=== PATIENT | female | born 1985 | race Hispanic/Latino ===

== ENCOUNTER → 2024-06-20 07:41 | Outpatient (REF) | payer BC, SELFPAY ==
[2024-06-20 08:17] LABS: Urine Albumin Negative (Neg - Trace); Urine Bilirubin Negative (Negative); Urine Character Slightly Cloudy (Clear); Urine Color Yellow; Urine Glucose Negative (Negative); Urine Ketone Negative (Negative); Urine Leukocyte Trace (Negative); Urine Nitrite Negative (Negative); Urine Occult Blood 2+ (Negative); Urine Specific Gravity 1.015 (<1.030); Urine Urobilinogen Negative (Neg - 1+); Urine pH 6.5 (5.0-9.0)
[2024-06-20 08:19] LABS: % Basophils 0.4 % (0-2); % Eosinophils 5.3 % (0-6); % Immature Granulocytes 0.3 % (0-0.5); % Lymphocytes 21.2 % (20.5-51.1); % Monocytes 7.2 % (1.7-9.3); % Neutrophils 65.6 % (42.2-75.2); Absolute Eosinophils 0.4 10^3/uL (0-0.7); Absolute Lymphocytes 1.5 10^3/uL (1.2-3.4); Absolute Monocytes 0.5 10^3/uL (0.1-0.6); Absolute Neutrophils 4.6 10^3/uL (1.4-6.5); Hematocrit 35.4 % (37.0-47.0); Hemoglobin 11.8 g/dL (12.0-16.0); Mean Corp Hgb Conc. 33.3 g/dL (33.0-37.0); Mean Corpuscular Hgb 28.2 pg (27.0-31.0); Mean Corpuscular Volume 84.7 fL (81.0-99.0); Mean Platelet Volume 10.8 fL (7.4-10.4); Nucleated Red Blood Cells % 0 %; Platelet Count 218 10^3/uL (130-400); Red Blood Cell Count 4.18 10^6/uL (4.20-5.40)
[2024-06-20 08:27] LABS: Urine Squamous Cell >30 /LPF (Few)
[2024-06-20 08:29] LABS: Urine Bacteria Few (Negative); Urine White Cell 0-2 /HPF (0-5)
[2024-06-20 08:51] LABS: ALT (SGPT) 12 U/L (0-35); AST (SGOT) 22 U/L (14-36); Albumin 4.6 g/dl (3.5-5.0); Alkaline Phosphatase 62 U/L (38-126); Blood Urea Nitrogen 13 mg/dl (7-17); Calcium 9.6 mg/dl (8.4-10.2); Carbon Dioxide 24 mmol/L (22-30); Chloride 102 mmol/L (98-107); Glucose 91 mg/dl (70-99); HDL Cholesterol 63 mg/dl; LDL Cholesterol, Calculated 97 mg/dl; Potassium 4.1 mmol/L (3.5-5.1); Sodium 142 mmol/L (135-145); Total Bilirubin 0.3 mg/dl (0.2-1.3); Total Cholesterol 203 mg/dl (50-199); Total Protein 7.2 g/dl (6.3-8.2); Triglyceride 219 mg/dl (10-149); Very Low Density Lipoprotein 43 mg/dl (0-30); eGFR > 60.00
[2024-06-20 09:04] LABS: Free T4 0.87 ng/dl (0.78-2.19)
[2024-06-20 09:18] LABS: Glycohemoglobin (HgbA1c) 5.2 % (4.0-5.6)
[2024-06-20 09:23] LABS: Ferritin 9.7 ng/ml (6.24-137)
[2024-06-20 09:55] LABS: Folate 14.2 ng/ml (2.76-20); Vitamin B12 550 pg/ml (239-931)
== END ==
LOC: REG 07:41
PROVIDERS: ATTENDING PHYSICIAN Nurse Practitioner Family; FAMILY PHYSICIAN Family Medicine
DX: E78.2 Mixed hyperlipidemia (principal); Z00.00 Encounter for general adult medical examination without abnormal findings; N95.1 Menopausal and female climacteric states
CPT/HCPCS: 36415; 80053; 80061; 81003; 81015; 82607; 82728; 82746; 83036; 84439; 84443; 85025

== ENCOUNTER → 2024-06-28 13:47 | Outpatient (REF) | payer BC, SELFPAY | LOC: WDC 13:47 | PROVIDERS: ATTENDING PHYSICIAN Nurse Practitioner Family | DX: Z12.31 Encounter for screening mammogram for malignant neoplasm of breast (principal) | CPT/HCPCS: 77063; 77067 ==

== ENCOUNTER 2024-08-23 17:29 | Emergency (ER) | payer BC, SELFPAY ==
[2024-08-23 17:36] VITALS: BP 96/63
[2024-08-23 18:36] VITALS: BMI 20.6
[2024-08-23 18:39] LABS: % Basophils 0.3 % (0-2); % Eosinophils 4.3 % (0-6); % Immature Granulocytes 0.3 % (0-0.5); % Lymphocytes 27.2 % (20.5-51.1); % Monocytes 4.5 % (1.7-9.3); % Neutrophils 63.4 % (42.2-75.2); Absolute Eosinophils 0.4 10^3/uL (0-0.7); Absolute Lymphocytes 2.5 10^3/uL (1.2-3.4); Absolute Monocytes 0.4 10^3/uL (0.1-0.6); Absolute Neutrophils 5.9 10^3/uL (1.4-6.5); Hematocrit 34.5 % (37.0-47.0); Hemoglobin 11.5 g/dL (12.0-16.0); Mean Corp Hgb Conc. 33.3 g/dL (33.0-37.0); Mean Corpuscular Hgb 27.3 pg (27.0-31.0); Mean Corpuscular Volume 81.8 fL (81.0-99.0); Mean Platelet Volume 10.2 fL (7.4-10.4); Nucleated Red Blood Cells % 0 %; Platelet Count 271 10^3/uL (130-400); Red Blood Cell Count 4.22 10^6/uL (4.20-5.40); Red Cell Dist. Width 12.6 % (11.5-14.5); White Blood Cell Count 9.3 10^3/uL (4.8-10.8)
[2024-08-23 18:54] LABS: HCG, Serum Qualitative Screen Negative
[2024-08-23 18:58] LABS: ALT (SGPT) 17 U/L (0-35); AST (SGOT) 21 U/L (14-36); Albumin 4.4 g/dl (3.5-5.0); Alkaline Phosphatase 49 U/L (38-126); Blood Urea Nitrogen 8 mg/dl (7-17); Calcium 9.2 mg/dl (8.4-10.2); Carbon Dioxide 24 mmol/L (22-30); Chloride 103 mmol/L (98-107); Estimated Creatinine Clearance 117 ml/min; Glucose 100 mg/dl (70-99); Sodium 140 mmol/L (135-145); Total Bilirubin 0.1 mg/dl (0.2-1.3); eGFR > 60.00
[2024-08-23 18:59] LABS: Lipase 75 U/L (23-300)
[2024-08-23 19:25] VITALS: BP 108/60
--- NOTE | 2024-08-23 20:12 | ED.GENMED ---
History of Present Illness
General
Chief Complaint: Abdominal Pain
Source: patient
Exam Limitations: none
Time Seen by Provider: 08/23/24 18:12
Nursing documentation reviewed up to this point in time: agreed with
History of Present Illness
History of Present Illness:
38-year-old female with a past medical history of asthma who presents to the emergency room for evaluation of abdominal pain. Patient reports onset of symptoms last night�she says she drank a glass of water and started having pain in the right
upper abdomen. She says that symptoms have been consistent since then. She reports a sharp pain right upper abdomen radiates to his right flank. She reports associated nausea but no vomiting. Denies any diarrhea or constipation. Denies any UTI
symptoms. She has had some vaginal spotting is currently on her menstrual period, no heavier than usual. She has not had any fevers or chills. She denies similar symptoms in the past. She does have prior surgical history of appendectomy.
Review of Systems
Review of Systems
All Other Systems: ROS reviewed and negative except as documented in HPI and ROS
Constitutional: Denies fever or chills
Respiratory: Denies trouble breathing
Cardiac: Denies chest pain
ABD/GI: Reports abdominal pain and nausea; Denies vomiting, diarrhea or constipated
: Reports bleeding (spotting); Denies dysuria, frequency or flank pain
Musculoskeletal: Denies neck pain or back pain
Neurological: Denies dizzy or headache
Phy Exam
Physical Exam
Physical Exam:
General: Awake, alert; no acute distress
Head: Normocephalic, atraumatic
Eyes: Conjunctiva normal, sclera anicteric
Throat: Airway intact, handling secretions
Neck: Trachea midline, supple without meningismus
Lungs: Clear to auscultation bilaterally, no wheezing, rales, rhonchi
Heart: Regular rate and rhythm, no murmurs, gallops, or rubs
Abd: Soft, non distended, mildly tender right upper quadrant
Back: No CVA tenderness
Neuro: No gross deficit
Extremities: Warm and well-perfused
Scores
Heart Failure Risk
Heart Failure Risk Score: Not Applicable
Heart Score for Chest Pain Patients
STEMI patient?: Not applicable
Withdrawal Assessment of Alcohol
Withdrawal Assessment Completed?: Not applicable
Course
Orders/Labs/Results
Orders:
Orders
08/23/24 18:15
Test Result ONCE
US Abdomen Complete/Upper Urgent
Comment:
Reason For Exam: RUQ pain
08/23/24 18:33
Complete Blood Count/With Diff Urgent
Comprehensive Metabolic Panel Urgent
HCG, Serum Qualitative Screen Urgent
Lipase Urgent
08/23/24 19:46
0.9% Sodium Chloride 500 ml [Nss] 500 ml IV BOLUS
Ketorolac [Toradol] 15 mg IV NOW STA
08/23/24 19:47
CT Abd/pelvis W Iv Cont Urgent
Comment:
Reason For Exam: right flank pain
08/23/24 20:55
Urinalysis Reflex To Culture Urgent
Date Specimen was Collected: 08/23/24
Time Specimen was Collected: 19:26
08/23/24 21:30
Pantoprazole [Protonix IV] 40 mg IV NOW STA
Abnormal Lab Results
08/23/24
18:33
Hgb 11.5 L g/dL
(12.0-16.0)
Hct 34.5 L %
(37.0-47.0)
Creatinine 0.5 L mg/dL
(0.6-1.0)
Glucose 100 H mg/dl
(70-99)
Total Bilirubin 0.1 L mg/dl
(0.2-1.3)
08/23/24 18:33
08/23/24 18:33
Vital Signs
Initial and Last Documented VS:
Initial Vital Signs
Temp Pulse Resp BP Pulse Ox
37.1 C 69 16 96/63 99
08/23/24 17:36 08/23/24 17:36 08/23/24 17:36 08/23/24 17:36 08/23/24 17:36
Last Documented Vital Signs
Temp Pulse Resp BP Pulse Ox
37.0 C 56 16 108/60 99
08/23/24 19:25 08/23/24 19:25 08/23/24 19:25 08/23/24 19:25 08/23/24 19:25
MDM/Problems Addressed
Differential Diagnosis Includes:
Cholecystitis, cholelithiasis, pancreatitis, gastritis, enteritis, nephrolithiasis, pyelonephritis
MDM/Problems Addressed:
38-year-old female presents for evaluation of right upper abdominal pain started after drinking water last night associate with nausea no vomiting. Vitals normal. Exam as above. Recent IV check labs including CBC and CMP, lipase. Check hCG.
Check urinalysis. Sent for upper abdominal trauma start. Provide fluids and pain medication. Reassess after the above.
Initial labs reviewed: CBC unremarkable, CMP no clinically significant abnormalities. hCG negative. Lipase normal. Urinalysis pending. Upper abdominal ultrasound negative for any acute pathology. With continued pain and tenderness sent for CT
abdomen pelvis.
CT abdomen pelvis negative for any acute pathology. Patient remains stable with normal vital signs. Possible symptoms are related to mild enteritis or gastritis or PUD. Low suspicion for emergent pathology at this point. Pain is well-controlled.
No clear indication for admission at this point. Will start on PPI, bland diet, discharge with GI referral. Patient is very comfortable with this plan. We spoke about return precautions all questions answered.
*Radiology
Radiology exam reviewed: radiology read reviewed
*Pulse Oximetry
Patient hypoxic: no
*Critical Care Note
Total Time (30-74mins, 75-104mins- exclusive of procedures): Not Applicable
Data Reviewed
Source: patient and spouse
ED Attending Note
-
Portions of this chart may have been created with voice recognition software.� Occasional wrong word or��sound alike� substitutions may have occurred due to the inherent limitations of voice recognition software.
Discharge Plan
Departure
Patient Disposition: Home (Routine Discharge)
Date of Disposition: 08/23/24
Time of Disposition: 21:36
Patient with high blood pressure during this ER visit?: No
Discharge Problem:
Abdominal pain
Instructions: Abdominal Pain
Prescriptions:
New
pantoprazole 40 mg tablet,delayed release (DR/EC)
40 mg PO DAILY Qty: 30 0RF
No Action
cetirizine [Zyrtec] 10 mg Tablet
10 mg PO DAILY
ibuprofen 200 mg Tablet
200 - 400 mg PO PRN PRN (Reason: pain)
Probiotic Acidophilus 1.5 mg (250 million cell) Capsule
10 mg PO DAILY
sertraline 100 mg Tablet
100 mg PO DAILY
sertraline 50 mg Tablet
50 mg PO HS
pyridoxine (vitamin B6) [Vitamin B-6] 500 mg Tablet
500 mg PO DAILY
Referrals:
Darío Mcneill DO [Family Provider] -
Jeffry Cespedes MD [Active] - Call in 1-3 days for appt (GI physician)
Activity Restrictions/Additional Instructions:
Thank you for visiting the Emergency Department at [facility].
1. Please schedule a follow up appointment as directed. Call first thing tomorrow morning to make an appointment.
2. If indicated, please take your medications as instructed and indicated on discharge paperwork.
3. If any of your symptoms do not improve, or persist, or become more severe within 6-12 hours, please return to the emergency department for further care.
4. Please return to the emergency department if you develop a headache, neck pain/stiffness, fever greater than 100.4F, chest pain, shortness of breath, persistent nausea, vomiting, slurred speech, difficulty walking, numbness/tingling, weakness,
signs of infection or any other symptoms that are worrisome to you.
Please call [phone] if you have any questions.
Interventions
Interventions:
*Risk Screen - Suicide Last Done: 08/23/24 17:37
*General Assessment Last Done: 08/23/24 18:40
*Neglect/Abuse Screening Last Done: 08/23/24 17:37
ED- Fall Risk Assessment Last Done: 08/23/24 19:02
LF-Mjmvrw-Vtcnzjkxcd Assessment Last Done: 08/23/24 18:40
Discharge Date and Time
Print Language: ICELANDIC
[2024-08-23] MEDS: TORADOL 15 MG IV (20:30)
[2024-08-23] MEDS: NSS 500 IV (20:31)
[2024-08-23] MEDS: PROTONIX IV 40 MG IV (21:56)
== END 2024-08-23 22:14 | disposition home or self-care (01) ==
LOC: EMR 17:29
PROVIDERS: EMERGENCY PHYSICIAN Emergency Medicine; FAMILY PHYSICIAN Family Medicine
DX: R10.9 Unspecified abdominal pain (principal); J45.909 Unspecified asthma, uncomplicated; Z90.49 Acquired absence of other specified parts of digestive tract
CPT/HCPCS: 99284; 96374; 96375; 96361; 74177; 76700; 80053; 83690; 84703; 85025; Q9967

== ENCOUNTER → 2024-09-03 11:13 | Outpatient (REF) | payer BC, SELFPAY ==
[2024-09-03 11:45] LABS: Urine Albumin Negative (Neg - Trace); Urine Bilirubin Negative (Negative); Urine Character Clear (Clear); Urine Color Straw; Urine Glucose Negative (Negative); Urine Ketone Negative (Negative); Urine Leukocyte 1+ (Negative); Urine Nitrite Negative (Negative); Urine Occult Blood Trace (Negative); Urine Specific Gravity 1.005 (<1.030); Urine Urobilinogen Negative (Neg - 1+)
[2024-09-03 12:52] LABS: Urine Squamous Cell >30 /LPF (Few); Urine Urothelial Cell 0-2 /LPF (FEW)
[2024-09-03 12:54] LABS: Urine Bacteria Few (Negative)
[2024-09-03 12:59] LABS: Ferritin 10.8 ng/ml (6.24-137)
[2024-09-03 13:14] LABS: Vitamin B12 792 pg/ml (239-931)
== END ==
LOC: REG 11:13
PROVIDERS: ATTENDING PHYSICIAN Nurse Practitioner Family
DX: D50.0 Iron deficiency anemia secondary to blood loss (chronic) (principal); R31.0 Gross hematuria
CPT/HCPCS: 36415; 81003; 81015; 82607; 82728; 87077; 87086; 87147

== ENCOUNTER → 2024-09-04 12:14 | Outpatient (REF) | payer BC, SELFPAY | LOC: REG 12:14 | PROVIDERS: ATTENDING PHYSICIAN Nurse Practitioner Family; FAMILY PHYSICIAN Family Medicine | DX: D50.9 Iron deficiency anemia, unspecified (principal); R31.0 Gross hematuria | CPT/HCPCS: 82272 ==

== ENCOUNTER → 2024-09-19 11:29 | Outpatient (REF) | payer BC, SELFPAY | LOC: HWRAD 11:29 | PROVIDERS: ATTENDING PHYSICIAN Nurse Practitioner Family; FAMILY PHYSICIAN Family Medicine | DX: E04.9 Nontoxic goiter, unspecified (principal) | CPT/HCPCS: 76536 ==

== ENCOUNTER 2025-03-17 09:30 | Emergency (ER) | payer BC, SELFPAY ==
[2025-03-17 09:43] VITALS: BP 118/73
--- NOTE | 2025-03-17 10:07 | ED.GENMED ---
History of Present Illness
General
Chief Complaint: Throat Problem
Source: patient and records
Exam Limitations: none
Time Seen by Provider: 03/17/25 09:54
History of Present Illness
History of Present Illness:
39yoF with a history of a thyroid nodule presenting with her for evaluation of atraumatic neck pain. Patient started to experience pain in her anterior neck last night. Pain is radiating up towards her jaw and is worse with talking. She
was diagnosed with a thyroid nodule about a year ago. Ultrasound in September 2024 shows a 11 x 7 x 11mm nodule on the R isthmus. She followed up with ENT and biopsy was not recommended. She was told to have a repeat ultrasound in 6 months which
she does not have scheduled yet. She feels that her nodule has gradually gotten bigger over the past several weeks. She denies any shortness of breath, dysphagia, fevers, URI symptoms.
Phy Exam
General Physical Exam
General Presentation: well appearing and no apparent distress
General Skin: warm and dry
General Habitus: normal
General Mental: alert
ENT Exam
ENT Exam: pharynx normal, neck supple, normocephalic and other (+Tenderness to thyroid gland. Small palpable nodule on R side of thyroid. No skin changes or significant swelling. Airway patent and phonation is normal. Posterior oropharynx appears
normal.)
Pulmonary Exam
Pulmonary Exam: no respiratory distress
Neurological Exam
Neurological Exam: alert
Valeriy Coma Scale
Eye Opening: Spontaneous
Verbal Response: Oriented
Motor Response: Obeys Commands
GCS Total Score: 15
Skin Exam
Skin Exam: normal color and warm/dry
Psychiatric Exam
Psychiatric Exam: normal mood/affect
Course
Orders/Labs/Results
Orders:
Orders
03/17/25 10:05
Thyroid US [US Thyroid/Neck/Head] Urgent
Comment:
Reason For Exam: Thyroid tenderness, R sided swelling
03/17/25 10:16
Complete Blood Count/With Diff Urgent
Comprehensive Metabolic Panel Urgent
TSH Reflex To Free T4 Urgent
03/17/25 12:21
Ketorolac [Toradol] 15 mg IV NOW STA
Abnormal Lab Results
03/17/25
10:16
RBC 3.89 L 10^6/uL
(4.20-5.40)
Hgb 10.7 L g/dL
(12.0-16.0)
Hct 32.6 L %
(37.0-47.0)
MCHC 32.8 L g/dL
(33.0-37.0)
Lymphocytes % 20.3 L %
(20.5-51.1)
Chloride 108 H mmol/L
(98-107)
03/17/25 10:16
03/17/25 10:16
Vital Signs
Initial and Last Documented VS:
Initial Vital Signs
Temp Pulse BP Pulse Ox
98.4 F 69 118/73 100
03/17/25 09:43 03/17/25 09:43 03/17/25 09:43 03/17/25 09:43
Last Documented Vital Signs
Temp Pulse Resp BP Pulse Ox
98.5 F 72 20 136/71 99
03/17/25 10:25 03/17/25 10:25 03/17/25 10:25 03/17/25 10:25 03/17/25 11:00
MDM/Problems Addressed
Differential Diagnosis Includes:
39yoF here with anterior neck pain since last night. Hx of thyroid nodule and feels it is getting bigger. No SOB. VSS. She is well appearing in no distress. There is thyroid tenderness on exam with a small palpable nodule. No significant swelling
noted or clinical evidence of airway compromise. Differential diagnosis includes but is not limited: thyroid nodule, thyroiditis, less likely infectious
Initial ED plan: Check CBC, CMP, TSH, and thyroid ultrasound.
*Critical Care Note
Total Time (30-74mins, 75-104mins- exclusive of procedures): Not Applicable
Update Note
Update Note:
Labs unremarkable including normal white count and TSH. Thyroid ultrasound shows small nodule measuring 1.3 x 0.9 x 1.0cm. Biopsy not recommended per radiology guidelines. No other abnormalities noted on ultrasound. Patient stable for discharge.
Supportive care discussed and advised f/u with ENT. ED return precautions reviewed. Patient discharged in stable condition.
ED Attending Note
-
Portions of this chart may have been created with voice recognition software.� Occasional wrong word or��sound alike� substitutions may have occurred due to the inherent limitations of voice recognition software.
Discharge Plan
Departure
Patient Disposition: Home (Routine Discharge)
Date of Disposition: 03/17/25
Time of Disposition: 12:20
Patient with high blood pressure during this ER visit?: No
Discharge Problem:
Anterior neck pain, Thyroid nodule
Instructions: Neck pain - ED discharge instructions
Prescriptions:
No Action
ibuprofen 200 mg Tablet
200 - 400 mg PO PRN PRN (Reason: pain)
Probiotic Acidophilus 1.5 mg (250 million cell) Capsule
10 mg PO DAILY
sertraline 100 mg Tablet
100 mg PO DAILY
Referrals:
Darío Mcneill DO [Family Provider, Family Practice]
Daniel Pena MD [Active, Otology]
Activity Restrictions/Additional Instructions:
Take Tylenol and ibuprofen as needed for pain.
Please call ENT today for follow-up. Return to the ER with any worsening symptoms including trouble breathing, fevers, or inability to swallow.
Interventions
Interventions:
*Risk Screen - Suicide Last Done: 03/17/25 10:25
*General Assessment Last Done: 03/17/25 10:25
*Neglect/Abuse Screening Last Done: 03/17/25 10:25
*ED- Fall Risk Assessment Last Done: 03/17/25 10:25
*ED COVID-19 Vaccine History Last Done: 03/17/25 10:25
*Nursing Disposition Last Done: 03/17/25 12:40
ED-EENT Assessment Last Done: 03/17/25 10:25
ED- Pulmonary Assessment Last Done: 03/17/25 10:25
Discharge Date and Time
Discharge Date/Time: 03/17/25 12:41
Print Language: [place]LAND[place]
[2025-03-17 10:17] VITALS: BMI 24.2
[2025-03-17 10:25] VITALS: BP 136/71
[2025-03-17 10:25] LABS: % Basophils 0.3 % (0-2); % Eosinophils 2.3 % (0-6); % Immature Granulocytes 0.2 % (0-0.5); % Lymphocytes 20.3 % (20.5-51.1); % Monocytes 5.2 % (1.7-9.3); % Neutrophils 71.7 % (42.2-75.2); Absolute Eosinophils 0.2 10^3/uL (0-0.7); Absolute Lymphocytes 1.8 10^3/uL (1.2-3.4); Absolute Monocytes 0.5 10^3/uL (0.1-0.6); Absolute Neutrophils 6.2 10^3/uL (1.4-6.5); Hematocrit 32.6 % (37.0-47.0); Hemoglobin 10.7 g/dL (12.0-16.0); Mean Corp Hgb Conc. 32.8 g/dL (33.0-37.0); Mean Corpuscular Hgb 27.5 pg (27.0-31.0); Mean Corpuscular Volume 83.8 fL (81.0-99.0); Mean Platelet Volume 10.4 fL (7.4-10.4); Nucleated Red Blood Cells % 0 %; Platelet Count 263 10^3/uL (130-400); Red Blood Cell Count 3.89 10^6/uL (4.20-5.40); Red Cell Dist. Width 12.8 % (11.5-14.5); White Blood Cell Count 8.6 10^3/uL (4.8-10.8)
[2025-03-17 10:36] LABS: ALT (SGPT) 14 U/L (0-35); AST (SGOT) 20 U/L (14-36); Albumin 4.3 g/dl (3.5-5.0); Alkaline Phosphatase 53 U/L (38-126); Blood Urea Nitrogen 12 mg/dl (7-17); Carbon Dioxide 25 mmol/L (22-30); Chloride 108 mmol/L (98-107); Estimated Creatinine Clearance 116 ml/min; Glucose 98 mg/dl (70-99); Potassium 4.2 mmol/L (3.5-5.1); Sodium 139 mmol/L (135-145); Total Bilirubin 0.4 mg/dl (0.2-1.3); Total Protein 6.9 g/dl (6.3-8.2); eGFR > 60.00
[2025-03-17 11:23] LABS: TSH Reflex To Free T4 1.81 uIU/ml (0.47-4.68)
== END 2025-03-17 12:41 | disposition home or self-care (01) ==
LOC: EMR 09:30
PROVIDERS: Physician Assistant; EMERGENCY PHYSICIAN Emergency Medicine; FAMILY PHYSICIAN Family Medicine
DX: M54.2 Cervicalgia (principal); R22.1 Localized swelling, mass and lump, neck; E04.1 Nontoxic single thyroid nodule
CPT/HCPCS: 99284; 76536; 80053; 84443; 85025

== ENCOUNTER → 2025-04-30 09:35 | Outpatient (REF) | payer BC, SELFPAY ==
[2025-04-30 10:47] LABS: Hematocrit 38.2 % (37.0-47.0); Hemoglobin 12.3 g/dL (12.0-16.0); Mean Corp Hgb Conc. 32.2 g/dL (33.0-37.0); Mean Corpuscular Volume 83.6 fL (81.0-99.0); Nucleated Red Blood Cells % 0 %; Platelet Count 258 10^3/uL (130-400); Red Cell Dist. Width 13.0 % (11.5-14.5)
[2025-04-30 11:33] LABS: Vitamin D, 25-OH*** 32.5 ng/mL (30-80)
[2025-04-30 11:45] LABS: TSH 0.85 uIU/ml (0.47-4.68)
[2025-04-30 13:28] LABS: FSH 3.3 mIU/ml
[2025-04-30 14:02] LABS: Vitamin B12 269 pg/ml (239-931)
== END ==
LOC: REG 09:35
PROVIDERS: ATTENDING PHYSICIAN Nurse Practitioner Family; FAMILY PHYSICIAN Family Medicine
DX: N92.6 Irregular menstruation, unspecified (principal); R53.83 Other fatigue; R63.5 Abnormal weight gain
CPT/HCPCS: 36415; 82306; 82607; 82627; 82670; 83001; 83002; 84146; 84403; 84439; 84443; 85025

== ENCOUNTER → 2025-05-05 12:19 | Outpatient (REF) | payer BC, SELFPAY | LOC: REG 12:19 | PROVIDERS: ATTENDING PHYSICIAN Nurse Practitioner Family; FAMILY PHYSICIAN Family Medicine | DX: N92.6 Irregular menstruation, unspecified (principal); R53.83 Other fatigue; R63.5 Abnormal weight gain | CPT/HCPCS: 36415; 81050; 82530 ==

== ENCOUNTER → 2025-06-19 10:34 | Outpatient (REF) | payer BC, SELFPAY | LOC: RAD 10:34 | PROVIDERS: ATTENDING PHYSICIAN Nurse Practitioner Family; FAMILY PHYSICIAN Family Medicine | DX: Z11.1 Encounter for screening for respiratory tuberculosis (principal) | CPT/HCPCS: 71046 ==

== ENCOUNTER → 2025-08-02 14:00 | Outpatient (REF) | payer BC, SELFPAY | LOC: WDC 14:00 | PROVIDERS: ATTENDING PHYSICIAN Obstetrics & Gynecology; FAMILY PHYSICIAN Nurse Practitioner Family | DX: Z12.31 Encounter for screening mammogram for malignant neoplasm of breast (principal) | CPT/HCPCS: 77063; 77067 ==